=== PATIENT | female | born 1960 | race African-American/Black ===

== ENCOUNTER → 2017-09-04 | Outpatient (CLI) | payer OTHER | LOC: FIMAGING 11:11 | PROVIDERS: ATTEND Nurse Practitioner | DX: Z12.31 Encounter for screening mammogram for malignant neoplasm of breast (principal) | CPT/HCPCS: G0202 ==

== ENCOUNTER → 2018-03-04 | Outpatient (CLI) | payer OTHER ==
[~2018-03-04] MED LIST: GADOBUTROL 10 ML VIAL IVP ONE
== END ==
LOC: FIMAGING 06:46
PROVIDERS: ATTEND Nurse Practitioner
DX: D17.71 Benign lipomatous neoplasm of kidney (principal); K83.8 Other specified diseases of biliary tract
CPT/HCPCS: A9585

== ENCOUNTER → 2018-06-09 | Outpatient (CLI) | payer OTHER | LOC: CIMAGING 15:51 | PROVIDERS: ATTEND Nurse Practitioner | DX: M25.571 Pain in right ankle and joints of right foot (principal) | CPT/HCPCS: 73610-PO ==

== ENCOUNTER → 2018-10-22 | Outpatient (CLI) | payer OTHER | LOC: FIMAGING 10:26 | PROVIDERS: ATTEND Nurse Practitioner | DX: Z12.31 Encounter for screening mammogram for malignant neoplasm of breast (principal) ==